=== PATIENT | female | born 1965 | race Caucasian/White ===

== ENCOUNTER → 2019-06-01 | Outpatient (RCR) | payer BC | LOC: PT 05-23 14:00 | PROVIDERS: ATTEND Orthopaedic Surgery | DX: M94.262 Chondromalacia, left knee (principal); M25.562 Pain in left knee; M62.81 Muscle weakness (generalized); R26.2 Difficulty in walking, not elsewhere classified; R29.6 Repeated falls ==

== ENCOUNTER 2019-06-13 14:00 | Outpatient (RCR) | payer BC | END 2019-07-02 | LOC: PT 14:00 | PROVIDERS: ATTEND Orthopaedic Surgery | DX: M94.262 Chondromalacia, left knee (principal) ==

== ENCOUNTER → 2019-09-22 | Day surgery (SDC) | payer BC ==
--- NOTE | 2019-09-20 11:51 | Diagnostic Imaging Report ---
Chest, PA and lateral. History: Preoperative evaluation for knee surgery. Comparison: None available. Discussion: The cardiomediastinal silhouette and pulmonary vasculature are within normal limits. The lungs are clear without evidence of consolidation or effusion. Patient is status post ACDF. IMPRESSION: No radiographic evidence of acute cardiopulmonary abnormality. Signed by: Heath Park MD on 09/20/2019 11:47 AM
[~2019-09-22] MED LIST: ACETAMINOPHEN 1000 MG/100 ML IV ONE; BUPIVACAINE 0.25% 30ML SDV INJ ONE; BUPIVACAINE 0.5%/EPI 30 ML SDV INJ ONE; CALTRATE 600 W1 EACH PO; CARAFATE1 GM/10 ML PO; CITALOPRAM HBR20 MG PO; DEXAMETHASONE SOD PHOS INJ 4 MG/ML VIAL ONE; FENTANYL CITRATE/PF 100MCG/2 ML INJ ONE; FIBER-TABS625 MG PO; FOLIC ACID-VIT1 EAC1 PO; KETOROLAC TROMETHAMINE 30 MG/ML VIAL ONE; LEVOTHYROXINE50 MCG PO; LIDOCAINE 1% W/EPINEPHRINE 20 ML VIAL ONE; LIDOCAINE 2% /EPINEPHRINE 20 ML SDV INJ ONE; LIDOCAINE HCL 2% LOCAL INJ 5 ML SDV VIAL INJ ONE; METHOTREXATE2.5 MG PO; MIDAZOLAM HCL 2 MG/2 ML VIAL ONE; MULTI-VITAMIN1 EACH PO; ONDANSETRON HCL INJ 2MG/ML 2ML 2 MG/ML VIAL ONE; OSTEO BI-FLEX1 EAC2 PEG; PANTOPRAZOLE SO40 MG PO; PLAQUENIL200 MG PO; PROBIOTIC & AC1 EACH PO; PROPOFOL IV EMULSION 10 MG/ML 20 ML VIAL ONE; RESTORIL15 MG PO; ROPIVACAINE 0.5% 5 MG/ML 30 ML SDV ONE; SEVOFLURANE INHAL SOLN 250 ML PEN BTL ONE; TRAZODONE HCL50 MG PO; ULTRAM50 MG PO
--- OUTSIDE RECORDS SUMMARY | 2019-09-22 05:42 | XMS REPORT ---
Author Author [facility] Address Unknown Phone Unavailable Care Team Providers Care Slate Worker Name Role Phone Antonio GUIDRY Unavailable Unavailable Problems This patient has no known problems. Allergies, Adverse Reactions, Alerts This patient has no known allergies or adverse reactions. Medications This patient has no known medications. Encounters Start Date/Time End Date/Time Encounter Type Admission Type Attending [facility] Care Department Encounter ID 2019-08-30 09:36:00 2019-08-30 09:36:00 Outpatient [id number] Results Test Description Test Time Test Comments Text Results Atomic Results Result Comments CHEST 2 VIEWS 2019-09-20 11:45:00 [place] [id number] Patient Name: FITZ LOPEZ MR #: [id number] : 1965 Age/Sex: 54/F Req #: [id number] Adm Physician: Ordered by: JESUS GUIDRY DO Report #: [id number] Location: OR Room/Bed: Procedure: [id number] DX/CHEST 2 VIEWS Exam Date: Exam Time: REPORT STATUS: Signed Chest, PA and lateral. History: Preoperative evaluation for knee surgery. Comparison: None available. Discussion: The cardiomediastinal silhouette and pulmonary vasculature are within normal limits. The lungs are clear without evidence of consolidation or effusion. Patient is status post ACDF. IMPRESSION: No radiographic evidence of acute cardiopulmonary abnormality. Signed by: Heath Park MD on 09/20/2019 11:47 AM Dictated By: HEATH PARK MD [id number] Transcribed By: KENYA on 09/20/19 114 COPY TO: JESUS GUIDRY DO
[2019-09-22] MEDS: CEFAZOLIN SOD 1 GM/NS 50ML 100 ML IV ONE (06:42)
[2019-09-22] MEDS: MEPERIDINE HCL INJ 25 MG/ML VIAL ONE (11:31)
[2019-09-22] MEDS: DIPHENHYDRAMINE HCL INJ 50 MG/ML VIAL ONE (11:46)
[2019-09-22 12:25] VITALS: BP 129/88
--- NOTE | 2019-09-22 19:59 | NUR ---
Date of surgery: Preoperative diagnosis: Anterior cruciate ligament tear of left knee, medial meniscus tear, Postoperative diagnosis: Anterior cruciate ligament tear of left knee, medial meniscus tear, impinging medial plica, lateral plateau chondromalacia Procedure performed: 1. Arthroscopic-assisted anterior cruciate ligament reconstruction with allograft Achilles of left knee. 2. Arthroscopic partical medial meniscectomy 3. Arthroscopic excision of impinging medial plica 4. Arthroscopic chondroplasty of lateral tibial plateau Surgeon: Angela Khanna, DO #1 General #2 Regional block Complications: None Tourniquet time: 0 Min. Femoral Hardware: [employer]hew 8 x 20 mm Regenesorb Biocomposite screw Tibial Hardware 1: [employer] 9 x 25 mm Regenesorb Biocomposite screw EBL: < 20 cc Indications: Due to persistent pain, instability and limitations on activity combined with findings on exam which included a lax asya and anterior drawer and imaging, the patient requests surgical treatment. Nonoperative care and alternative surgical options were reviewed. We agreed that this provided the best risk/benefit profile for this patient, understanding and accepting risks of recurrent//persistent symptoms, infection, bleeding, stiffness, neurological/vascular damage, failure to improve and anesthetic complication (as reviewed by anesthesia service). Also, the patient understands that arthroscopic treatment of articular cartilage lesions provides temporary incomplete relief but that meniscal symptoms should be well addressed. We discussed graft options and that none were perfect, but that achilles allograft provided the best risk/benefit profile for this patient. Findings: Articular cartilage -Patella Grade 1 -Trochlea Grade 1 Medial Compartment Femoral Condyle Grade 4 lesion adjacent to impinging medial plica Medial Plateau Grade 1 Meniscus - Posterior horn horizontal cleavage tear and frayng, flap at anterior horn/body junction Lateral Compartment Femoral Condyle 1 Plateau Grade 2-3 near posterior Meniscus - Posterior horn fraying Cruciate Ligaments - ACL tear near tibial insertion Synovium - Large dense medial impinging Plica Indications for surgery: The patient had a left knee injury, examination, and radiographic/imaging findings consistent with an anterior cruciate ligament tear. We reviewed the alternatives of surgery versus nonop care, graft choices and their respective risks / benefits. Due to the desire to remain active, surgery was chosen after reviewing alternatives, risks ( including but not limited to graft failure, stiffness, infection, VTE, symptomatic hardware, anesthetic complication etc), benefits, potential complications. The patient (and relevant family) wished to proceed with the aforementioned surgery. Due to knee instability, clinical exam and desire to continue athletic activities, an ACL Reconstruction was recommended. The patient and I agreed on the use of an Achilles Allograft. Procedure in detail: After appropriate permits were obtained, the patient was taken to the operating room and placed upon the operating room table. The patient underwent general anesthesia with the anesthesia service. The patient received preoperative intravenous antibiotics. A well-padded tourniquet was placed on the thigh and the contralateral leg was placed in a well leg brooks. The extremity was prepped and draped in the usual standard fashion. A surgical timeout was made. Diagnostic arthroscopy was performed and the above findings were discovered. The Achilles allograft as then rinsed and the graft was then fashioned to a roughly cylindrical bone block and splitting the distal tails of the graft to accept graft link fixation. The articular surfaces described above chondral damage were stable and did not require debridement of unstable flaps/fragments, resecting the minimal tissue needed to obtain stable margins. The medial meniscus was was debrided and tightened with an arthroscopic electrocautery to obtain a smooth stable border. The lateral tibial plateau was debrided to establish a well-balanced border. A combination of rotary mague was used to remove the anterior cruciate ligament remnant, perform a limited notchplasty, and demarcate the femoral and tibial footprints of the anterior cruciate ligament. The center portion of the femoral footprint was marked with an awl. Using a low profile reamer through anteromedial portal in the hyperflexed position the femoral tunnel was created in the center of the femoral footprint. The posterior wall was intact and approximately 1-2 mm. All debris was removed from the knee. The tibial tunnel was created in the center of the tibial footprint and the graft shuttled across the knee into the femoral tunnel. There it was secured with the above hardware anterior-superior to the cancellous aspect of the bone block with the bone tendon junction flush with the internal aperture of the socket. The graft was secure. The knee was brought into near full extension and the tibial portion of the graft was fixated with a screw and seated flush with the anterior cortex. The graft was inspected and probed and found to have excellent tension, and be free of impingement. There was no hardware prominent in the knee. The knee was found to have full symmetric extension with normal stability exam. Excess graft was excised sharply. The impinging Plica was excised with an arthrocopic shaver and demonstrated a grade 4 lesion of the medial femoral condyle. The wound was irrigated and closed in layers with 2-0 Vicryl and 3-0 Monocryl. The portals were closed with 3-0 Monocryl. A bulky gauze bandage was applied followed by a compressive DAYO dressing and brace in full extension. The calf was soft and there were normal distal pulses. The patient was extubated and transferred to the recovery room in stabl e condition.
--- NOTE | 2019-09-22 20:02 | NUR ---
DISCHARGE SUMMARY PRIMARY DIAGNOSIS: Left Knee ACL Tear, Medial Meniscus Tear, Lateral Plateau Chondromalacia, Impinging Medial Plica PROCEDURE PERFORMED: Left Knee Arthroscopic ACL Reconstruction with Achilles Allograft, Partial Medial Meniscectomy, Lateral Plateau Chondroplasty, Excision of Impinging Medial Plica REASON FOR HOSPITALIZATION: Arthroscopic procedure HOSPITAL COURSE: Patient underwent procedure without complication INSTRUCTIONS ON DISCHARGE: Weight bearing status: WBAT in brace DVT Prophylaxis: Aspirin 325 mg PO BID Analgesics: [place] 5/325 mg PO Q4 PRN Pain Dressing Management: As per instructions provided Follow up in the office in 2 weeks. MEDICATIONS ON DISCHARGE: Scripts provided DO DAG[facility] [address] [place] [id number] [phone]
== END | disposition home or self-care (01) ==
LOC: OR 05:28
PROVIDERS: ATTEND Orthopaedic Surgery
DX: S83.512A Sprain of anterior cruciate ligament of left knee, initial encounter (principal); S83.242A Other tear of medial meniscus, current injury, left knee, initial encounter; M67.52 Plica syndrome, left knee; M94.262 Chondromalacia, left knee; M06.9 Rheumatoid arthritis, unspecified; M35.00 Sjogren syndrome, unspecified; K21.9 Gastro-esophageal reflux disease without esophagitis; K58.9 Irritable bowel syndrome, unspecified; F32.9 Major depressive disorder, single episode, unspecified; X58.XXXA Exposure to other specified factors, initial encounter; Z01.810 Encounter for preprocedural cardiovascular examination; Z01.818 Encounter for other preprocedural examination; Z86.73 Personal history of transient ischemic attack (TIA), and cerebral infarction without residual deficits
CPT/HCPCS: 29881; 29888; 71046; 93005; C1713 ×3; J0131; J0690; J1100; J1200; J1885; J2001 ×2; J2175; J2250; J2405; J2704; J2795; J3010